=== PATIENT | male | born 1960 | race Asian ===

== ENCOUNTER 2017-11-08 09:52 | Emergency (ER) | payer OTHER ==
[~2017-11-08] VITALS: Ht 175.3 cm; Wt 95.3 kg
[2017-11-08 10:01] VITALS: BP 155/106
[2017-11-08] MEDS ORDERED: Ketorolac 30mg Inj IV ONE (10:15)
[2017-11-08] MEDS ORDERED: Morphine Sulfate 4mg/ml Inj IVP ONE ×2 (10:15→13:15)
[2017-11-08 11:17] LABS: ANION GAP 11 mmol/L (5-15); BLOOD UREA NITROGEN 21 mg/dL (7-18); CALCIUM 9.2 MG/DL (8.5-10.1); CARBON DIOXIDE 24 MMOL/L (21-32); CHLORIDE 105 MMOL/L (98-107); CREATININE 1.2 MG/DL (0.55-1.30); POTASSIUM 4.8 MMOL/L (3.5-5.1); SODIUM 140 MMOL/L (136-145)
[2017-11-08 11:22] LABS: ALANINE AMINOTRANSFERASE 43 U/L (12-78); ALBUMIN 4.2 G/DL (3.4-5.0); ALBUMIN/GLOBULIN RATIO 1.1 (1.0-2.7); ALKALINE PHOSPHATASE 65 U/L (46-116); ASPARTATE AMINO TRANSFERASE 43 U/L (15-37); BILIRUBIN,TOTAL 0.8 MG/DL (0.2-1.0)
[2017-11-08] MEDS ORDERED: HYDROmorphone 1mg/ml Carpuject IVP ONE (12:00)
[2017-11-08] MEDS ORDERED: Hydromorphone 0.5mg/0.5ml inj IVP ONE (12:00)
--- NOTE | 2017-11-08 12:11 | Diagnostic Imaging Report ---
Clinical Indication: Left lower quadrant abdominal pain Technique: No oral contrast utilized, per emergency room physician request IV administration nonionic contrast. Venous phase spiral acquisition obtained through the abdomen and pelvis. Multiplanar reconstructions were generated. Total dose length product 1048 mGycm. CTDIvol(s) 18.4 mGy. Dose reduction achieved using automated exposure control Comparison: none Findings: There is enlargement of the left kidney, mild left hydronephrosis and hydroureter, and decreased contrast enhancement of the left kidney diffusely. A 3 mm calculus is seen within the bladder lumen, at or just beyond the left ureteral orifice. No intrarenal calculi are demonstrated. No right renal or ureteral calculi demonstrated. The left kidney demonstrates a 6 cm upper pole cyst which demonstrates some calcifications layering dependently, and a 2 other smaller cysts. No focal abnormality seen in the right kidney. The liver is diffusely slightly hypoattenuating, consistent with fatty change. No focal abnormality. The gallbladder, bile ducts, pancreas, spleen, adrenals are unremarkable. No retroperitoneal or mesenteric mass or adenopathy. No pelvic mass or adenopathy. The appendix is not visualized, but no findings to suggest acute appendicitis are evident. No evidence of colonic diverticulosis or diverticulitis. No small bowel distention. No free or loculated peritoneal air or fluid is evident. The distal esophagus, stomach, duodenum are unremarkable. The lung bases demonstrate posterior dependent atelectatic changes. The bones are unremarkable. Impression: 3 mm calculus within the bladder lumen at or just beyond the left ureteral orifice. Either recently passed or on the verge of passing. Resultant mild left hydronephrosis, hydroureter, left renal enlargement and somewhat delayed contrast enhancement No intrarenal calculi Multiple left renal cysts. Mildly hypoattenuating liver, could indicate mild fatty change The CT scanner at [facility] is accredited by the [employer] and the scans are performed using protocols designed to limit radiation exposure to as low as reasonably achievable to attain images of sufficient resolution adequate for diagnostic evaluation.
[2017-11-08 12:14] LABS: BASOPHILS % (AUTO) 0.6 % (0.0-2.0); EOSINOPHILS % (AUTO) 0.2 % (0.0-3.0); HEMATOCRIT 43.8 % (42.0-52.0); LYMPHOCYTES % (AUTO) 16.4 % (20.0-45.0); MEAN CORPUSCULAR VOLUME 89 FL (80-99); MONOCYTES % (AUTO) 6.5 % (1.0-10.0); NEUTROPHILS % (AUTO) 76.4 % (45.0-75.0); PLATELET COUNT 224 K/UL (150-450); RED CELL DISTRIBUTION WIDTH 11.4 % (11.6-14.8); WHITE BLOOD COUNT 12.5 K/UL (4.8-10.8)
[2017-11-08] MEDS ORDERED: Tamsulosin 0.4mg cap ORAL ONE (12:45)
[2017-11-08] MEDS ORDERED: NORCO 5-325 TA1 EACH ORAL (13:29)
[2017-11-08] MEDS ORDERED: IBUPROFEN600 MG ORAL (13:29)
[2017-11-08] MEDS ORDERED: TAMSULOSIN HCL0.4 MG ORAL (13:29)
--- NOTE | 2017-11-08 14:04 | Emergency Room Report ---
History of Present Illness General Chief Complaint: Abdominal Pain Source: Patient Present Illness HPI 57-year-old male presents ED for evaluation. Patient complaining of lower abdominal pain which started this morning. Sharp, left-sided, 10 out of 10, nonradiating. Denies fevers or chills. Denies chest pain or shortness of breath. Denies nausea or vomiting. No other aggravating relieving factors. Denies any other associated symptoms Allergies: Coded Allergies: No Known Allergies (Unverified , 11/08/17) Patient History Past Medical History: none Past Surgical History: none Pertinent Family History: none Social History: Denies: smoking, alcohol use, drug use Immunizations: UTD Reviewed Nursing Documentation: PMH: Agreed; PSxH: Agreed Nursing Documentation-PMH Past Medical History: No Stated History Review of Systems All Other Systems: negative except mentioned in HPI Physical Exam Vital Signs Date Time Temp Pulse Resp B/P (MAP) Pulse Ox O2 Delivery O2 Flow Rate FiO2 11/08/17 09:56 98.6 63 30 155/106 100 Room Air 98.6 Sp02 EP Interpretation: reviewed, normal General Appearance: alert, GCS 15, non-toxic, moderate distress Head: normocephalic, atraumatic Eyes: bilateral eye normal inspection, bilateral eye PERRL ENT: hearing grossly normal, normal pharynx, no angioedema, normal voice Neck: full range of motion, supple/symm/no masses Respiratory: chest non-tender, lungs clear, normal breath sounds, speaking full sentences Cardiovascular #1: regular rate, rhythm, no edema Cardiovascular #2: 2+ carotid (R), 2+ carotid (L), 2+ radial (R), 2+ radial (L) , 2+ dorsalis pedis (R), 2+ dorsalis pedis (L) Gastrointestinal: normal bowel sounds, soft, non-distended, no guarding, no rebound, tenderness - LLQ Rectal: deferred Genitourinary: normal inspection, no CVA tenderness Musculoskeletal: back normal, gait/station normal, normal range of motion, non- tender Neurologic: alert, oriented x3, responsive, motor strength/tone normal, sensory intact, speech normal Psychiatric: judgement/insight normal, memory normal, mood/affect normal, no suicidal/homicidal ideation Reflexes: 3+ bicep (R), 3+ bicep (L), 3+ tricep (R), 3+ tricep (L), 3+ knee (R) , 3+ knee (L) Skin: normal color, no rash, warm/dry, well hydrated Lymphatic: no adenopathy Medical Decision Making Diagnostic Impression: Primary Impression: Kidney stone ER Course Hospital Course 57-year-old F presents to ED with LLQ pain Differential diagnosis includes-appendicitis, cholecystitis, kidney stone, pyelonephritis Clinical course Patient placed on stretcher. After initial history and physical I ordered labs , IV fluids, pain medications and CT scan Labs - no leukocytosis, electrolytse ok, LFTs normal CT scan shows 3mm stone in bladder lumen with hydronephrosis/hydroureter Upon reassessment, patient states pain has improved. I offered patient option for admission but patient states he preferred to be discharged. Patient normally goes to [place] but I will provide him with urology referral. I feel this is a highly complex case requiring extensive working including EKG/ Rhythm strip, Xray/CT/US, Blood/urine lab work, repeat exams while in ED, and administration of strong opiates/narcotics for pain control, admission to hospital or close patient follow up. Diagnosis - kidney stone Stable and discharged to home with Rx Motrin, Onsted, Flomax. Followup with PMD/ urology. Return to ED if symptoms recur or worsen Labs Test 11/08/17 10:49 11/08/17 12:05 Sodium Level 140 MMOL/L (136-145) Potassium Level 4.8 MMOL/L (3.5-5.1) Chloride Level 105 MMOL/L (98-107) Carbon Dioxide Level 24 MMOL/L (21-32) Anion Gap 11 mmol/L (5-15) Blood Urea Nitrogen 21 mg/dL (7-18) Creatinine 1.2 MG/DL (0.55-1.30) Estimat Glomerular Filtration Rate > 60 mL/min (>60) Glucose Level 141 MG/DL (74-106) Calcium Level 9.2 MG/DL (8.5-10.1) Total Bilirubin 0.8 MG/DL (0.2-1.0) Aspartate Amino Transf (AST/SGOT) 43 U/L (15-37) Alanine Aminotransferase (ALT/SGPT) 43 U/L (12-78) Alkaline Phosphatase 65 U/L (46-116) Total Protein 7.9 G/DL (6.4-8.2) Albumin 4.2 G/DL (3.4-5.0) Globulin 3.7 g/dL Albumin/Globulin Ratio 1.1 (1.0-2.7) Lipase 169 U/L (73-393) White Blood Count 12.5 K/UL (4.8-10.8) Red Blood Count 4.90 M/UL (4.70-6.10) Hemoglobin 15.0 G/DL (14.2-18.0) Hematocrit 43.8 % (42.0-52.0) Mean Corpuscular Volume 89 FL (80-99) Mean Corpuscular Hemoglobin 30.6 PG (27.0-31.0) Mean Corpuscular Hemoglobin Concent 34.2 G/DL (32.0-36.0) Red Cell Distribution Width 11.4 % (11.6-14.8) Platelet Count 224 K/UL (150-450) Mean Platelet Volume 5.9 FL (6.5-10.1) Neutrophils (%) (Auto) 76.4 % (45.0-75.0) Lymphocytes (%) (Auto) 16.4 % (20.0-45.0) Monocytes (%) (Auto) 6.5 % (1.0-10.0) Eosinophils (%) (Auto) 0.2 % (0.0-3.0) Basophils (%) (Auto) 0.6 % (0.0-2.0) Prothrombin Time 10.4 SEC (9.30-11.50) Prothromb Time International Ratio 1.0 (0.9-1.1) Activated Partial Thromboplast Time 26 SEC (23-33) CT/MRI/US Diagnostic Results CT/MRI/US Diagnostic Results : Imaging Test Ordered: CT A/P Impression 3 mm calculus within the bladder lumen at or just beyond the left ureteral orifice. Either recently passed or on the verge of passing. Resultant mild left hydronephrosis, hydroureter, left renal enlargement and somewhat delayed contrast enhancement Last Vital Signs Date Time Temp Pulse Resp B/P (MAP) Pulse Ox O2 Delivery O2 Flow Rate FiO2 11/08/17 13:26 98.6 11/08/17 10:01 30 155/106 100 Room Air 11/08/17 09:56 63 Status: improved Disposition: HOME, SELF-CARE Condition: Stable Scripts Tamsulosin Hcl (TAMSULOSIN HCL*) 0.4 Mg Cap.er.24h 0.4 MG ORAL BEDTIME for 10 Days, CAP Prov: Antonio Ponce MD 11/08/17 Hydrocodone Bit/Acetaminophen 5-325* (NORCO 5-325*) 1 Each Tablet 1 TAB ORAL Q6H PRN for For Pain, #10 TAB 0 Refills Prov: Antonio Ponce MD 11/08/17 Ibuprofen* (MOTRIN*) 600 Mg Tablet 600 MG ORAL Q8H PRN for For Pain, #30 TAB 0 Refills Prov: Antonio Ponce MD 11/08/17 Referrals: Ward Krueger M.D. NOT CHOSEN IPA/,REFERRING (PCP) Patient Instructions: Kidney Stones, [id number] Antonio Ponce MD Nov 08, 2017 14:04
[2017-11-08 20:04] VITALS: BP 135/77
== END 2017-11-08 13:00 | disposition home or self-care (01) ==
LOC: EMR 11:45 → CANBEDREQ 13:12
DX: N20.0 Calculus of kidney (principal); N21.0 Calculus in bladder; N28.1 Cyst of kidney, acquired
CPT/HCPCS: 36415; 74177; 80053; 83690; 85025; 85610; 85730; 86850; 86900; 86901; 96374; 96375; 99284; J1170; J1885; J2270; J2405; Q9967